=== PATIENT | female | born 1995 | race Caucasian/White ===

== ENCOUNTER 2022-10-14 14:06 | Emergency (ER) | payer OTHER ==
[~2022-10-14] VITALS: Ht 165.1 cm; Wt 81.7 kg
[2022-10-14] MEDS ORDERED: AZITHROMYCIN500 MG PO (15:24)
[2022-10-14] MEDS ORDERED: DOXYCYCLINE HY100 MG PO (15:24)
[2022-10-14 15:38] VITALS: BP 133/81
== END 2022-10-14 15:41 | disposition home or self-care (01) ==
LOC: ED 14:06
DX: T74.21XA Adult sexual abuse, confirmed, initial encounter (principal)
CPT/HCPCS: 36415; 80053; 81003; 84703; 85025; 99284